=== PATIENT | female | born 1930 | race Caucasian/White ===

== ENCOUNTER 2016-10-17 08:38 | Outpatient (CLI) | payer MEDICARE, BC | END 2016-10-17 08:39 | disposition home or self-care (01) | DRG 607 | LOC: CONVCARE 08:38 | PROVIDERS: ATTEND Orthopaedic Surgery | DX: L84 Corns and callosities (principal) | CPT/HCPCS: 73660 ==

== ENCOUNTER → 2017-01-01 | Day surgery (SDC) | payer MEDICARE, BC ==
[~2017-01-01] MED LIST: BUPIVACAINE HCL 0.5% MPF 10 ML SOL ONE; FENTANYL 100MCG/2ML SOL ONE; LIDOCAINE HCL 1% MPF SOL ONE; LIDOCAINE HCL 2% MPF SOL ONE; MIDAZOLAM 2 MG/2 ML SOL ONE; PROPOFOL 500 MG/50 ML EMU IV ONE
[2017-01-01 11:32] VITALS: PULSE 67
[2017-01-01 12:09] VITALS: BP 144/85; RESP 20; TEMP 97; O2SAT 97
== END | disposition home or self-care (01) | DRG 607 ==
LOC: SURG 08:50
PROVIDERS: ATTEND Orthopaedic Surgery
DX: L84 Corns and callosities (principal); M89.9 Disorder of bone, unspecified
CPT/HCPCS: 76000; 99070; J2250; J3010; J3490; L3260; J2001; J2704

== ENCOUNTER 2018-11-01 11:03 | Outpatient (CLI) | payer MEDICARE, BC ==
[2017-01-01 12:09] VITALS: O2SAT 97
== END 2018-11-01 11:04 | disposition home or self-care (01) | DRG 556 ==
LOC: CONVCARE 11:03
PROVIDERS: ATTEND Orthopaedic Surgery
DX: M25.571 Pain in right ankle and joints of right foot (principal); M65.331 Trigger finger, right middle finger; M65.312 Trigger thumb, left thumb; M13.88 Other specified arthritis, other site
CPT/HCPCS: 73610; 73650